=== PATIENT | female | born 1985 | race Caucasian/White ===

== ENCOUNTER 2018-03-12 20:22 | Emergency (ER) | payer BC ==
[~2018-03-12] VITALS: Ht 149.9 cm; Wt 98.4 kg
[2018-03-12 20:37] VITALS: BP 114/77
[2018-03-12] MEDS ORDERED: HYDR-963 PO (20:52)
[2018-03-12] MEDS ORDERED: PENI500T PO (20:52)
--- NOTE | 2018-03-12 20:58 | ED.ADGEN ---
Past History Past Medical History: Gallstones, MRSA Past Surgical History: Cholecystectomy Alcohol Use: Occasionally Drug Use: None Adult General Chief Complaint Chief Complaint dental pain HPI HPI Patient is a 33-year-old female who had been root canal of her left upper premolar earlier this week who presents with left upper maxillary pain radiating to left cheek and left ear. Symptom onset was earlier this afternoon. Patient initially reports relatively mild pain following her root canal until this afternoon. No other acute symptoms or complaints. Patient has not contacted the dentist to perform the procedure. . [] Review of Systems Review of Systems Review symptoms as per history of present illness. All other review symptoms are negative All other systems were reviewed and found to be within normal limits, except as documented in this note. Allergies Allergies Allergies Coded Allergies Type Severity Reaction Last Updated Verified NSAIDS (Non-Steroidal Anti-Inflamma Adverse Reaction Intermediate Nausea and Vomiting 04/01/14 Yes Physical Exam Physical Exam Constitutional: Well developed, well nourished, no acute distress, non-toxic appearance. [] HENT: Normocephalic, atraumatic, bilateral external ears normal, TM, clear fluid and both TMs, no blisters, air-fluid levels, oropharynx moist, no gingival swelling, dental pain, tenderness.[] Back: No tenderness, no CVA tenderness. [] Extremities: No tenderness. [] Neurologic: Alert and oriented X 3, normal motor function, normal sensory function, no focal deficits noted. [] Psychologic: Affect normal, judgement normal, mood normal. [] Current Patient Data Vital Signs Vital Signs Date Time Temp Pulse Resp B/P (MAP) Pulse Ox O2 Delivery O2 Flow Rate FiO2 03/12/18 20:37 97.5 97 18 97 Room Air EKG EKG [] Radiology/Procedures Radiology/Procedures [:] Course & Med Decision Making Course & Med Decision Making Pertinent Labs and Imaging studies reviewed. (See chart for details) [Patient instructed to take antibiotics and pain medication contact dentist/ student assistant on Thursday for further evaluation and treatment.] Final Impression Final Impression [#1 dental pain] Dragon Disclaimer Dragon Disclaimer This electronic medical record was generated, in whole or in part, using a voice recognition dictation system. RICH MENDEZ DO Mar 12, 2018 20:58
== END 2018-03-12 21:03 | disposition home or self-care (01) ==
LOC: ER 20:22
DX: K08.89 Other specified disorders of teeth and supporting structures (principal); G89.18 Other acute postprocedural pain; Z86.14 Personal history of Methicillin resistant Staphylococcus aureus infection; Z88.6 Allergy status to analgesic agent
CPT/HCPCS: 99283

== ENCOUNTER 2018-11-05 19:47 | Emergency (ER) | payer BC ==
[~2018-11-05] VITALS: Ht 149.9 cm; Wt 98.3 kg
[~2018-11-05 19:47] MED LIST: HYDR-3136 PO; PENI500T PO
[2018-11-05 20:04] VITALS: BP 141/77
[2018-11-05] MEDS ORDERED: AZIT250T PO (20:18)
[2018-11-05] MEDS ORDERED: GUAI118L20 PO (20:18)
--- NOTE | 2018-11-05 20:18 | PHYS DOC ---
Past History Past Medical History: Gallstones, MRSA Past Surgical History: Cholecystectomy Alcohol Use: Occasionally Drug Use: None Adult General Chief Complaint Chief Complaint: COUGH HPI HPI Patient is a 33-year-old female who presents with complaint of productive cough and congestion for the last several days. Patient states that symptoms are getting worse and she is not able to sleep at night due to the coughing. She also indicates that she has a lot of postnasal drip. She denies any chest pain or shortness of breath. She also denies any fever. Patient states that her symptoms are worsened when she lies down flat.[] Review of Systems Review of Systems Constitutional: Denies fever or chills [] HENT: Positive nasal congestion[] Respiratory: Positive cough without shortness of breath [] Cardiovascular: No additional information not addressed in HPI [] Allergies Allergies Allergies Coded Allergies Type Severity Reaction Last Updated Verified NSAIDS (Non-Steroidal Anti-Inflamma Adverse Reaction Intermediate Nausea and Vomiting 04/01/14 Yes Physical Exam Physical Exam Constitutional: Well developed, well nourished, no acute distress, non-toxic appearance. [] Cardiovascular:Heart rate regular rhythm, no murmur [] Lungs & Thorax: Fine upper or rhonchi are noted bilaterally to auscultation [ Abdomen: Bowel sounds normal, soft, no tenderness, no masses, no pulsatile masses. [] Skin: Warm, dry, no erythema, no rash. [] Neurologic: Alert and oriented X 3, no focal deficits noted. [] Current Patient Data Vital Signs Vital Signs Date Time Temp Pulse Resp B/P (MAP) Pulse Ox O2 Delivery O2 Flow Rate FiO2 11/05/18 20:04 98.2 98 18 98 Room Air EKG EKG [] Radiology/Procedures Radiology/Procedures [] Course & Med Decision Making Course & Med Decision Making Pertinent Labs and Imaging studies reviewed. (See chart for details) [] Dragon Disclaimer Dragon Disclaimer This electronic medical record was generated, in whole or in part, using a voice recognition dictation system. Departure Departure: Impression: Primary Impression: Acute bronchitis Disposition: 01 HOME, SELF-CARE Condition: STABLE Referrals: PCP,NO (PCP) Patient Instructions: Acute Bronchitis Scripts Guaifenesin/Codeine Phosphate (CHERATUSSIN AC SYRUP) 118 Ml Liquid 5 ML PO PRN Q6HRS PRN for COUGH, #120 ML Prov: LYLE ORTEGA Jr. DO 11/05/18 Azithromycin (ZITHROMAX) 250 Mg Tablet 1 PKG PO UD for infection, #6 TAB Prov: LYLE ORTEGA Jr. DO 11/05/18 Problem Qualifiers Primary Impression: Acute bronchitis Bronchitis organism: unspecified organism Qualified Codes: J20.9 - Acute bronchitis, unspecified LYLE ORTEGA Jr. DO Nov 05, 2018 20:18
== END 2018-11-05 20:38 | disposition home or self-care (01) ==
LOC: ER 19:47
DX: J20.9 Acute bronchitis, unspecified (principal); Z86.14 Personal history of Methicillin resistant Staphylococcus aureus infection; Z88.6 Allergy status to analgesic agent
CPT/HCPCS: 99283

== ENCOUNTER 2019-06-21 18:33 | Emergency (ER) | payer BC, OTHER ==
[~2019-06-21] VITALS: Ht 149.9 cm; Wt 101.2 kg
[~2019-06-21 18:33] MED LIST changes: +AZIT250T PO; +GUAI118L20 PO
--- NOTE | 2019-06-21 18:38 | PHYS DOC ---
Past History Past Medical History: Gallstones, MRSA Past Surgical History: Cholecystectomy Smoking: Cigarettes Alcohol Use: Occasionally Drug Use: None Adult General Chief Complaint Chief Complaint: COUGH..." ... I having coughing all the time, fever, chills, Hurt.. All over, Just Feel Yucky....".. " Every one has been sick at the [employer] where I work..." HPI HPI Patient is a 34 year old female who presents with above hx and complaints of cough, fever, congestion, sore throat, myalgia and malaise. Pt. is also 16 weeks with her sixth child . Pt. is on vitamins. Patient does smoke. Patient did not get flu vaccination this season. Normally follows her primary care at the clinic at [facility]. No recent travel. No history immunosuppression. No specific ill contacts. Patient is following at [facility] for . Review of Systems Review of Systems Constitutional: Hx. of fever Eyes: Denies change in visual acuity, redness, or eye pain [] HENT: Hx of nasal congestion and sore throat [] Respiratory: Complaints of cough and wheezing. Cardiovascular: No additional information not addressed in HPI [] GI: Denies abdominal pain, nausea, vomiting, bloody stools or diarrhea [] : Denies dysuria or hematuria [] Musculoskeletal: Complaints of generalize muscle, back pain and joint pain [] Integument: Denies rash or skin lesions [] Neurologic: Denies headache, focal weakness or sensory changes [] Endocrine: Denies polyuria or polydipsia [] All other systems were reviewed and found to be within normal limits, except as documented in this note. Family History Family History Noncontributory Current Medications Current Medications He nursing for home meds Allergies Allergies Allergies Coded Allergies Type Severity Reaction Last Updated Verified NSAIDS (Non-Steroidal Anti-Inflamma Adverse Reaction Intermediate Nausea and Vomiting 04/01/14 Yes Physical Exam Physical Exam Constitutional: Moderate acute distress, non-toxic appearance. [] HENT: Normocephalic, atraumatic, bilateral external ears normal, oropharynx moist, injected pharynx,, no oral exudates, nose swollen turbinates and clear rhinorrhea Eyes: PERRLA, EOMI, conjunctiva normal, no discharge. [] Neck: Normal range of motion, no tenderness, supple, no stridor. [] Cardiovascular:Heart rate regular rhythm, no murmur [] Lungs & Thorax: Bilateral breath sounds good apex with scattered wheezes on auscultation [] Abdomen: Bowel sounds normal, soft, no tenderness, no masses, no pulsatile masses. Gravid Skin: Warm, dry, no erythema, no rash. [] Back: No tenderness, no CVA tenderness. [] Extremities: generalized joint and muscle tenderness, no cyanosis, no clubbing, ROM intact, trace edema. [] Neurologic: Alert and oriented X 3, normal motor function, normal sensory function, no focal deficits noted. []DTRs +2 patella Psychologic: Affect anxious, judgement normal, mood normal. [] EKG EKG [] Radiology/Procedures Radiology/Procedures [] Course & Med Decision Making Course & Med Decision Making Pertinent Labs and Imaging studies reviewed. (See chart for details) Push fluids. Gargle with Listerine 4 times a day. May take Tylenol for discomfort. Use MDI 2 puffs 4 times a day. Recommend patient stop smoking. May take Benadryl 25-50 mg 4 times a day for congestion and cough.Consider getting flu vaccination when over this acute episode of Influ. A. []Impression: 1. Viral Syndrome- Influ. A 2. Tobacco Use 3. Gravid 16 weeks- (Term x 5) Planned delivery Research. Dragon Disclaimer Dragon Disclaimer This electronic medical record was generated, in whole or in part, using a voice recognition dictation system. Departure Departure: Disposition: 01 HOME/RESIDENCE PRIOR TO ADM Condition: STABLE Referrals: PCP,NO (PCP) Dragon Disclaimer This chart was dictated in whole or in part using Voice Recognition software in a busy, high-work load, and often noisy Emergency Department environment. It may contain unintended and wholly unrecognized errors or omissions. Dragon Disclaimer This chart was dictated in whole or in part using Voice Recognition software in a busy, high-work load, and often noisy Emergency Department environment. It may contain unintended and wholly unrecognized errors or omissions. ELICIA PHILLIP MD Jun 21, 2019 18:38
[2019-06-21] MEDS ORDERED: ALBUTEROL SULFATE 8GM INHALER. INH ONE (18:45)
[2019-06-21] MEDS ORDERED: predniSONE 10 MG TABLET PO ONE (18:45)
[2019-06-21 18:48] VITALS: BP 123/79
[2019-06-21 19:20] LABS: BARBITURATES NEG (NEG); BENZODIAZEPINES NEG (NEG); CANNABINOIDS NEG (NEG); COCAINE NEG (NEG); METHADONE NEG (NEG); OPIATES NEG (NEG); PHENCYCLIDINE NEG (NEG)
[2019-06-21 19:22] LABS: BILIRUBIN,URINE NEG (NEG); CLARITY,URINE CLEAR; COLOR,URINE STRAW; GLUCOSE,URINE NEG (NEG)
[2019-06-21 19:23] LABS: BACTERIA,URINE FEW /HPF (0-FEW); NITRITE,URINE NEG (NEG); SQUAMOUS EPITHELIAL CELL,UR FEW /LPF; UROBILINOGEN,URINE 0.2 mg/dL (0.2 mg/dL); WBC,URINE OCC /HPF (0-4)
[2019-06-21 19:24] LABS: AMORPHOUS SEDIMENT,UR PRESENT /HPF
[2019-06-21 19:25] LABS: U PREG PATIENT POSITIVE (NEG)
[2019-06-21 19:26] LABS: AMPHETAMINE/METHAMPHETAMINE NEG (NEG)
[2019-06-21 19:34] LABS: INFLUENZA A PATIENT POSITIVE (NEGATIVE)
[2019-06-21 19:35] LABS: INFLUENZA B PATIENT NEGATIVE (NEGATIVE)
== END 2019-06-21 19:46 | disposition home or self-care (01) ==
LOC: ER 18:33
DX: O98.512 Other viral diseases complicating pregnancy, second trimester (principal); F17.210 Nicotine dependence, cigarettes, uncomplicated; Z87.442 Personal history of urinary calculi; Z86.14 Personal history of Methicillin resistant Staphylococcus aureus infection; Z90.49 Acquired absence of other specified parts of digestive tract; Z88.6 Allergy status to analgesic agent; Z3A.16 16 weeks gestation of pregnancy
CPT/HCPCS: 36415; 80307; 81001; 81025; 87070; 87804; 87880; 94640; 99284; J7512; J7613; 94664

== ENCOUNTER 2019-08-10 09:41 | Emergency (ER) | payer OTHER ==
[~2019-08-10] VITALS: Ht 149.9 cm; Wt 98.3 kg
[2019-08-10 10:20] VITALS: BP 147/91
--- NOTE | 2019-08-10 10:20 | PHYS DOC ---
Past History Additional Past Medical Histor: mrsa Past Surgical History: Cholecystectomy Smoking: Cigarettes Alcohol Use: None Drug Use: None Adult General Chief Complaint Chief Complaint: CHEST PAIN HPI HPI 34-year-old female who is approximately 32 weeks gestation as a Ab0 presents with report of right anterior chest wall pain which is been ongoing since this morning. Patient denies any trauma. Denies leg swelling or calf tend erness. Denies shortness of air or pleuritic pain. Patient describes the pain as sharp in nature which is worse with palpation. Patient also very tearful and reports she does not "know why" she keeps crying. Reports she feels the child moving. Denies any vaginal bleeding or discharge. Review of Systems Review of Systems Constitutional: Denies fever or chills Eyes: Denies redness or eye pain HENT: Denies nasal congestion or sore throat Respiratory: Denies cough or shortness of breath Cardiovascular: Reports chest pain; denies palpitations GI: Denies abdominal pain, nausea, or vomiting : Denies dysuria or hematuria Musculoskeletal: Denies back pain or joint pain Integument: Denies rash or skin lesions Neurologic: Denies headache, focal weakness or sensory changes Complete systems were reviewed and found to be within normal limits, except as documented in this note. Allergies Allergies Allergies Coded Allergies Type Severity Reaction Last Updated Verified NSAIDS (Non-Steroidal Anti-Inflamma Adverse Reaction Intermediate Nausea and Vomiting 04/01/14 Yes Physical Exam Physical Exam Constitutional: Well developed, well nourished, tearful, non-toxic appearance HENT: Normocephalic, atraumatic, oropharynx moist Eyes: Conjunctiva normal, no discharge Neck: Normal range of motion, no tenderness, supple Cardiovascular: Heart rate normal, regular rhythm Lungs & Thorax: Bilateral breath sounds clear to auscultation, no wheezing, pal pation of right anterior chest wall reproducible. Abdomen: Soft, no tenderness, gravid Skin: Warm, dry, no erythema, no rash Back: No tenderness, no CVA tenderness Extremities: No tenderness, ROM intact, no edema Neurologic: Alert and oriented X 3, no focal deficits noted Psychologic: Affect anxious and crying, judgment normal EKG EKG @0949 Sinus tachycardia at 111bpm, NO ST elevation, QRS 76ms, QT/QTc 320/438ms Radiology/Procedures Radiology/Procedures [] Course & Med Decision Making Course & Med Decision Making Patient presents with atypical chest pain to right anterior wall. Patient is . No calf tenderness or edema noted. Patient very tearful. Lungs clear to auscultation. Patient's oxygenation normal. Denies pleuritic pain. Denies history of DVT or PE. Patient offered laboratory and ultrasound evaluation of bilateral lower extremities to ensure no DVT however less likely on physical exam. Patient elected for supportive care including Tylenol and ice pack and will return for any worsening of condition. heart tones normal. Patient stable for discharge with outpatient follow-up with PCP/OB. Discussed findings and plan with patient, who acknowledges understanding and agreement. Dragon Disclaimer Dragon Disclaimer This electronic medical record was generated, in whole or in part, using a voice recognition dictation system. Departure Departure: Impression: Primary Impression: Atypical chest pain Additional Impression: Disposition: HOME, SELF-CARE Condition: STABLE Referrals: PCP,NO (PCP) Patient Instructions: ABCs of , Chest Pain (Nonspecific), [id number], Chest Wall Pain, [id number] Additional Instructions: ICE area 20 min on then leave off 20 mins as needed for next few days. Take Tylenol as needed for pain or discomfort. HEART Score for Chest Pain PTs The HEART Score for CP Pts HEART Score for Chest Pain: HEART Score for Chest Pain Response (Comments) Value History Slighlty/Non-Suspicious 0 ECG Normal 0 Age < 45 0 Risk Factors 1 or 2 Risk Factors 1 Total 1 Risk Factors: Risk Factors: DM, Current or recent (<one month) smoker, HTN, HLP, family history of CAD, obesity. Risk Scores: Score 0 - 3: 2.5% MACE over next 6 weeks - Discharge Home Score 4 - 6: 20.3% MACE over next 6 weeks - Admit for Clinical Observation Score 7 - 10: 72.7% MACE over next 6 weeks - Early Invasive Strategies Problem Qualifiers Additional Impression: Weeks of gestation: 32 weeks Qualified Codes: Z3A.32 - 32 weeks gestation of JASON CARROLL DO Aug 10, 2019 10:20
[2019-08-10] MEDS ORDERED: ACETAMINOPHEN 500 MG TABLET PO ONE (10:30)
--- NOTE | 2019-08-10 17:54 | EKG ---
[address] [address] Test Date: 2019-08-10 Test Time: 09:49:42 Pat Name: THERESA BROCK Department: Room: Gender: F [employer]: : 1985 Requested By: JASON CARROLL Order Number: [id number] Reading MD: Measurements Intervals [place] Rate: 111 P: 16 AR: 132 QRS: 24 QRSD: 76 T: 42 QT: 320 QTc: 438 Interpretive Statements SINUS TACHYCARDIA NO SPECIFIC ECG ABNORMALITIES RI6.01 No previous ECG available for comparison
== END 2019-08-10 10:35 | disposition home or self-care (01) ==
LOC: ER 09:41
DX: O26.893 Other specified pregnancy related conditions, third trimester (principal); R07.89 Other chest pain; O99.333 Smoking (tobacco) complicating pregnancy, third trimester; Z3A.32 32 weeks gestation of pregnancy; Z88.6 Allergy status to analgesic agent
CPT/HCPCS: 93005; 99283

== ENCOUNTER 2019-08-16 16:51 | Emergency (ER) | payer OTHER ==
[~2019-08-16] VITALS: Ht 149.9 cm; Wt 106.7 kg
[2019-08-16] MEDS ORDERED: IV NORMAL SALINE 1,000ML 1,000 ML IV SCH (17:23)
[2019-08-16] MEDS ORDERED: ONDANSETRON PF 4 MG/2 ML VIAL. IVP ONE ×2 (17:30→19:15)
--- NOTE | 2019-08-16 17:30 | PHYS DOC ---
Past History Additional Past Medical Histor: mrsa (LYLE ORTEGA Jr., DO) Past Surgical History: Cholecystectomy (LYLE ORTEGA Jr., DO) Smoking: Cigarettes Alcohol Use: None Drug Use: None (LYLE ORTEGA Jr., DO) Adult General Chief Complaint Chief Complaint: ABDOMINAL PAIN IN HPI HPI Patient is a 34-year-old female who presents with complaint of lower back pain for about the last week and today feeling like she was having contractions while she was at work. Patient is a at approximately 24 weeks' gestational age. She states that she has been having nausea for quite some time now and does admit that she may not be drinking enough fluids. She also indicates that she is under a lot of stress. Patient states that since lying down here in the emergency room the back pain has improved. She states that the contractions are probably Riley Bergman state that they were intermittent while at work today. Patient denies any fever.[] (LYLE ORTEGA Jr., DO) Review of Systems Review of Systems Constitutional: Denies fever or chills [] Respiratory: Denies cough or shortness of breath [] Cardiovascular: No additional information not addressed in HPI [] GI: Admits to abdominal cramps/Riley Bergman with nausea. Denies vomiting or diarrhea [] : Denies dysuria or hematuria [] Musculoskeletal: Complains of lower back pain [] Integument: Denies rash or skin lesions [] All other systems were reviewed and found to be within normal limits, except as documented in this note. (LYLE ORTEGA Jr., DO) Current Medications Current Medications Current Medications Medications (Trade) Dose Ordered Sig/Tiffanie Start Time Stop Time Status Last Admin Dose Admin Ondansetron HCl (Zofran) 4 mg 1X ONCE 08/16/19 17:30 08/16/19 17:31 UNV Sodium Chloride 1,000 ml @ 1,000 mls/hr Q1H 08/16/19 17:23 08/16/19 18:22 UNV (LYLE ORTEGA Jr., DO) Allergies Allergies Allergies Coded Allergies Type Severity Reaction Last Updated Verified NSAIDS (Non-Steroidal Anti-Inflamma Adverse Reaction Intermediate Nausea and Vomiting 04/01/14 Yes (LYLE ORTEGA Jr., DO) Physical Exam Physical Exam Constitutional: Well developed, well nourished, no acute distress, non-toxic appearance. [] HENT: Normocephalic, atraumatic, bilateral external ears normal, oropharynx dry, no oral exudates, nose normal. [] Eyes: PERRLA, EOMI, conjunctiva normal, no discharge. [] Neck: Normal range of motion, no tenderness, supple. [] Cardiovascular: Regular rate and rhythm[] Lungs & Thorax: Bilateral breath sounds clear to auscultation [] Abdomen: Bowel sounds normal, gravid with no significant tenderness. [] Skin: Warm, dry, no erythema, no rash. [] Extremities: No tenderness, no cyanosis, no clubbing, ROM intact. [] Neurologic: Alert and oriented X 3n, no focal deficits noted. [] (LYLE ORTEGA Jr., DO) EKG EKG [] (LYLE ORTEGA Jr., DO) Radiology/Procedures Radiology/Procedures [] (LYLE ORTEGA Jr., DO) Course & Med Decision Making Course & Med Decision Making Pertinent Labs and Imaging studies reviewed. (See chart for details) [] (LYLE ORTEGA Jr., DO) Course & Med Decision Making Pt. report improvement at 1900 hrs. Still mild nausea and Lt. lower flank pain. Pt. has apt. Thursday with Ob at Dr. Rodger Juarez. US prior reportedly showed no abnormalities. Pt. push fluids. Tylenol for pain. Marked pain take Percocet. Review labs with OB. Call for apt. sooner and return if any concerns. No vaginal discharge, DTR +2, no ankle edema. BP 117/73. Impression: Impression: 1. Gravid 6P5- currently at 24 weeks via US with Ob 2. Nausea 3. Lt. Sciatic Back pain 4. Mild dehydration 5. [facility] [place] (ELICIA PHILLIP MD) Dragon Disclaimer Dragon Disclaimer This electronic medical record was generated, in whole or in part, using a voice recognition dictation system. (LYLE ORTEGA Jr., DO) Departure Departure: Disposition: HOME/RESIDENCE PRIOR TO ADM Condition: STABLE Referrals: PCP,NO (PCP) Scripts Oxycodone HCl/Acetaminophen (Percocet 5-325 mg Tablet) 1 Each Tablet 1 TAB PO PRN QID PRN for PAIN MDD 4 Tablet(s) for 30 Days, #30 TAB 0 Refills Prov: ELICIA PHILLIP MD 08/16/19 Ondansetron Hcl (ZOFRAN) 8 Mg Tablet 8 MG PO QIDPRN PRN for for active vomiting, #30 BOTTLE Prov: ELICIA PHILLIP MD 08/16/19 Mai Disclaimer This chart was dictated in whole or in part using Voice Recognition software in a busy, high-work load, and often noisy Emergency Department environment. It may contain unintended and wholly unrecognized errors or omissions. (ELICIA PHILLIP MD) LYLE ORTEGA Jr. DO Aug 16, 2019 17:30 ELICIA PHILLIP MD Aug 16, 2019 19:12
[2019-08-16 17:54] LABS: BASO % 0 % (0-3); EOS # 0.1 x10^3/uL (0.0-0.7); EOS % 1 % (0-3); HEMATOCRIT 36.7 % (36.0-47.0); HEMOGLOBIN 12.3 g/dL (12.0-15.5); LYMPH # 1.7 x10^3/uL (1.0-4.8); LYMPH % 17 % (24-48); MEAN CORPUSCULAR HEMOGLOBIN 33 pg (25-35); MEAN CORPUSCULAR HGB CONC 34 g/dL (31-37); MEAN CORPUSCULAR VOLUME 98 fL (79-100); MONO # 0.7 x10^3/uL (0.0-1.1); MONO % 7 % (0-9); NEUT # 7.2 x10^3uL (1.8-7.7); NEUT % 74 % (31-73); PLATELET COUNT 158 x10^3/uL (140-400); RED BLOOD COUNT 3.75 x10^6/uL (3.50-5.40); RED CELL DISTRIBUTION WIDTH 13.7 % (11.5-14.5); WHITE BLOOD COUNT 9.7 x10^3/uL (4.0-11.0)
[2019-08-16 17:57] LABS: CALCIUM 8.8 mg/dL (8.5-10.1); CREATININE 0.6 mg/dL (0.6-1.0); GFR 113.8; POTASSIUM 3.7 mmol/L (3.5-5.1)
[2019-08-16 17:59] LABS: BILIRUBIN,URINE NEG (NEG); CLARITY,URINE HAZY; COLOR,URINE AMBER; GLUCOSE,URINE NEG (NEG)
[2019-08-16 18:00] LABS: BACTERIA,URINE 0 /HPF (0-FEW); NITRITE,URINE NEG (NEG); SQUAMOUS EPITHELIAL CELL,UR OCC /LPF; UROBILINOGEN,URINE 0.2 mg/dL (0.2 mg/dL)
[2019-08-16] MEDS ORDERED: ACETAMINOPHEN 500 MG TABLET PO ONE (18:00)
[2019-08-16 18:03] LABS: ALBUMIN 2.7 g/dL (3.4-5.0); ALBUMIN/GLOBULIN RATIO 0.7 (1.0-1.7); TOTAL BILIRUBIN 0.4 mg/dL (0.2-1.0); TOTAL PROTEIN 6.5 g/dL (6.4-8.2)
[2019-08-16] MEDS ORDERED: ONDA8TAB9 PO (19:18)
[2019-08-16] MEDS ORDERED: OXYC-325 PO (19:18)
[2019-08-16 19:43] VITALS: BP 127/86
== END 2019-08-16 19:52 | disposition home or self-care (01) ==
LOC: ER 16:51
DX: O26.892 Other specified pregnancy related conditions, second trimester (principal); M54.40 Lumbago with sciatica, unspecified side; R10.9 Unspecified abdominal pain; O99.282 Endocrine, nutritional and metabolic diseases complicating pregnancy, second trimester; E86.0 Dehydration; O99.332 Smoking (tobacco) complicating pregnancy, second trimester; Z3A.24 24 weeks gestation of pregnancy
CPT/HCPCS: 36415; 80053; 81001; 83690; 84702; 85025; 87086; 96361; 96374; 96375; 99284; J2405; J7030

== ENCOUNTER 2020-01-13 16:15 | Emergency (ER) | payer OTHER ==
[~2020-01-13] VITALS: Ht 149.9 cm; Wt 99.5 kg
[~2020-01-13 16:15] MED LIST changes: +ONDA8TAB9 PO; +OXYC-325 PO
[2020-01-13 16:24] VITALS: BP 155/97
[2020-01-13] MEDS ORDERED: CLOT15CR23 TP (16:54)
--- NOTE | 2020-01-13 16:55 | PHYS DOC ---
Past History Past Medical History: No Pertinent History Additional Past Medical Histor: mrsa Past Surgical History: Cholecystectomy, Smoking: Cigarettes Alcohol Use: None Drug Use: None General Adult EDM: Chief Complaint: WOUND CHECK HPI: HPI: 34-year-old female pmh obesity presents to the ED sent in by her [employer] doctor with concern for a wound check of her scar. Patient states she had a by Dr. Gail Soares at [facility] on December 13. Boyfriend told patient she had pus coming out of her wound. Patient reports she has difficulty keeping the skin clean and dry, reports an odor from the wound. No pmh diabetes. Is bottle feeding. ROS: Denies associated fever, chills, cough, sore throat, nausea, vomiting, diarrhea, abdominal pain, abnormal vaginal bleeding or discharge, back pain, dysuria, hematuria, flank pain, leg swelling, hemoptysis or diaphoresis. Review of Systems: Review of Systems: Constitutional: Denies fever or chills Eyes: Denies change in visual acuity HENT: Denies nasal congestion or sore throat Respiratory: Denies cough or shortness of breath Cardiovascular: Denies chest pain or edema GI: Denies abdominal pain, nausea, vomiting, bloody stools or diarrhea : Denies dysuria Musculoskeletal: Denies back pain or joint pain Integument: Denies rash Neurologic: Denies headache, focal weakness or sensory changes Endocrine: Denies polyuria or polydipsia Lymphatic: Denies swollen glands Psychiatric: Denies depression or anxiety Heart Score: Risk Factors: Risk Factors: DM, Current or recent (<one month) smoker, HTN, HLP, family history of CAD, obesity. Risk Scores: Score 0 - 3: 2.5% MACE over next 6 weeks - Discharge Home Score 4 - 6: 20.3% MACE over next 6 weeks - Admit for Clinical Observation Score 7 - 10: 72.7% MACE over next 6 weeks - Early Invasive Strategies Allergies: Allergies: Allergies Coded Allergies Type Severity Reaction Last Updated Verified NKMA Allergy Unknown 08/16/19 Yes NSAIDS (Non-Steroidal Anti-Inflamma Adverse Reaction Intermediate Nausea and Vomiting 04/01/14 Yes Physical Exam: PE: Constitutional: Well developed, well nourished, no acute distress, non-toxic appearance. [] HENT: Normocephalic, atraumatic, bilateral external ears normal, oropharynx moist, no oral exudates, nose normal. [] Eyes: PERRLA, EOMI, conjunctiva normal, no discharge. [] Neck: Normal range of motion, no tenderness, supple, no stridor. [] Cardiovascular:Heart rate regular rhythm, no murmur [] Lungs & Thorax: Bilateral breath sounds clear to auscultation [] Abdomen: Bowel sounds normal, soft, no tenderness, no masses, no pulsatile masses. [] Skin: Warm, dry, no erythema, no rash. [] Back: No tenderness, no CVA tenderness. [] Extremities: No tenderness, no cyanosis, no clubbing, ROM intact, no edema. [] Neurologic: Alert and oriented X 3, normal motor function, normal sensory func tion, no focal deficits noted. [] Psychologic: Affect normal, judgement normal, mood normal. [] Current Patient Data: Vital Signs: Vital Signs Date Time Temp Pulse Resp B/P (MAP) Pulse Ox O2 Delivery O2 Flow Rate FiO2 01/13/20 16:24 98.4 105 14 155/97 (116) 95 Room Air EKG: EKG: [] Radiology/Procedures: Radiology/Procedures: [] Course & Med Decision Making: Course & Med Decision Making Pertinent Labs and Imaging studies reviewed. (See chart for details) [] Dragon Disclaimer: Dragon Disclaimer: This electronic medical record was generated, in whole or in part, using a voice recognition dictation system. Departure Departure: Impression: Primary Impression: Encounter for postoperative wound check Additional Impression: Candidal dermatitis Disposition: HOME/RESIDENCE PRIOR TO ADM Condition: STABLE Referrals: KAYDEN SOARES MD (PCP) Patient Instructions: Yeast Infection of the Skin, [id number] Scripts Clotrimazole (CLOTRIMAZOLE) 15 Gm Cream..g. 1 JOSE FRANCISCO TP BID PRN for RASH, #30 GM until rash disappears/resolves Prov: FLORIAN VALERA DO 01/13/20 Justification of Admission: Justification of Admission: Justification of Admission Dx: N/A FLORIAN VALERA DO Jan 13, 2020 16:54
== END 2020-01-13 17:10 | disposition home or self-care (01) ==
LOC: ER 16:15
DX: O86.00 Infection of obstetric surgical wound, unspecified (principal); L25.9 Unspecified contact dermatitis, unspecified cause; F17.210 Nicotine dependence, cigarettes, uncomplicated; Z98.890 Other specified postprocedural states; Z90.49 Acquired absence of other specified parts of digestive tract
CPT/HCPCS: 99282

== ENCOUNTER 2020-03-07 09:09 | Emergency (ER) | payer OTHER ==
[~2020-03-07] VITALS: Ht 149.9 cm; Wt 100.0 kg
[~2020-03-07 09:09] MED LIST changes: +CLOT15CR23 TP
[2020-03-07] MEDS ORDERED: IV NORMAL SALINE 1,000ML 1,000 ML IV ONE (09:30)
[2020-03-07] MEDS ORDERED: METOCLOPRAMIDE HCL 10 MG/2 ML VIAL. IVP ONE (09:30)
--- NOTE | 2020-03-07 09:39 | PHYS DOC ---
Past History Past Medical History: No Pertinent History Additional Past Medical Histor: mrsa Past Surgical History: Cholecystectomy, Smoking: Cigarettes Alcohol Use: None Drug Use: None General Adult EDM: Chief Complaint: FLANK PAIN HPI: HPI: Patient is a 35 year old F who presents with left flank pain that began this morning. She states the pain has been constant since it started, and she states she cannot become comfortable or make the pain improve. She denies radiation of the pain, rates it 10/10 on the pain scale, and when asked to describe the pain she states it is "just horrible". She complains of associated nausea and diaphoresis, but denies vomiting. She denies dysuria and frequency, but reports that her urine is a darker reddish color. She denies taking any medication today to try to improve the pain. Review of Systems: Review of Systems: Constitutional: Denies fever or chills Eyes: Denies redness or eye pain HENT: Denies nasal congestion or sore throat Respiratory: Denies cough or shortness of breath Cardiovascular: Denies chest pain or palpitations GI: Denies abdominal pain and vomiting; reports nausea : Denies dysuria; reports hematuria Musculoskeletal: Denies joint and back pain Integument: Denies rash or skin lesions Neurologic: Denies headache or sensory changes Complete systems were reviewed and found to be within normal limits, except as documented in this note. Allergies: Allergies: Allergies Coded Allergies Type Severity Reaction Last Updated Verified NKMA Allergy Unknown 08/16/19 Yes NSAIDS (Non-Steroidal Anti-Inflamma Adverse Reaction Intermediate Nausea and Vomiting 03/07/20 Yes Physical Exam: PE: Constitutional: Standing in room and pacing, appears that she cannot get comfortable. Well developed, well nourished. HENT: Normocephalic, atraumatic Eyes:Conjunctiva normal, no discharge Neck: Normal range of motion, supple Lungs & Thorax: No respiratory distress, equal chest rise and fall Abdomen: Soft, mildly tender to palpation in left lower quadrant Skin: Warm, dry, no rash Back: CVA tenderness on left side. Extremities: No tenderness, no edema Neurologic: Alert and oriented X 3, no focal deficits noted Psychologic: Affect normal, judgment normal Current Patient Data: Vital Signs: Vital Signs Date Time Temp Pulse Resp B/P (MAP) Pulse Ox O2 Delivery O2 Flow Rate FiO2 03/07/20 09:16 98.6 60 18 131/99 (110) 99 EKG: EKG: [] Radiology/Procedures: Radiology/Procedures: PROCEDURE: CT ABDOMEN PELVIS WO CONTRAST CT ABDOMEN PELVIS WO CONTRAST History: Reason: left flank pain eval for ureteral calculi / Spl. Instructions: / History: Technique: Noncontrast examination of the abdomen and pelvis. Coronal and sagittal reconstructions were performed. Exposure: One or more of the following individualized dose reduction techniques were utilized for this examination: 1. Automated exposure control 2. Adjustment of the mA and/or kV according to patient size 3. Use of iterative reconstruction technique. Comparison: None Findings: Lower chest: Bilateral lower lobe groundglass opacities. No pleural effusion. No consolidation. Abdomen and pelvis: Tiny right inferior hepatic hypodensity measures 5 mm. The spleen, adrenal glands, and pancreas unremarkable. Prior cholecystectomy. Mild left hydronephrosis. 4 mm left proximal ureteral calculus (series 2 image 70). Mild left perinephric and proximal ureteral fat stranding. Decompressed urinary bladder. No right hydronephrosis. Crescentic cystic lesion in the region of the urethra (series 2 image 143) measures 2.5 x 1.5 cm. Uterus and ovaries are unremarkable. Normal pelvic No evidence of bowel obstruction. No pathologic lymphadenopathy. No ascites. Periumbilical fat-containing hernia measures 3.7 x 2.9 cm. Fascial defect measures 0.8 cm. Bones: No pathologic osseous lesions. Impression: 1. 4 mm obstructing left proximal ureteral calculus contributing to mild left hydronephrosis and perinephric stranding. 2. Crescentic cystic lesion within the region of the urethra, may represent urethral diverticulum or vaginal cystic lesion. Recommend further clinical evaluation with symptoms. Depending on symptoms recommend imaging follow-up. 3. Tiny right hepatic hypodensity, may represent cyst or hemangioma although too small to further characterize. 4. Prior cholecystectomy. Electronically signed by: Nick Montana DO (03/07/2020 10:05 AM) [id number] Course & Med Decision Making: Course & Med Decision Making Pt is a 35 yo F who presented with left flank pain that began this morning, with associated nausea and hematuria. CT abd/pelvis showed a 4mm stone within the left ureter and mild hydronephrosis of left kidney. Patient's nausea and pain were well controlled in the ED. UA contained both RBC and WBC. Pt was started on antibiotics. Stable upon discharge. Pertinent Labs and Imaging studies reviewed. Dragon Disclaimer: Mai Disclaimer: This electronic medical record was generated, in whole or in part, using a voice recognition dictation system. Departure Departure: Impression: Primary Impression: Kidney stone Additional Impression: Urinary tract infection Qualified Codes: N30.01 - Acute cystitis with hematuria Disposition: HOME/RESIDENCE PRIOR TO ADM Condition: STABLE Referrals: KAYDEN CLARK MD (PCP) Patient Instructions: Diet for Kidney Stones, Incidental Abnormal Radiological Finding, Kidney Stones, [id number], Urinary Tract Infection, [id number] Additional Instructions: Please follow closely with your PCP and/or an Urologist. Please give your CT results to your PCP and/or Urologist for further evaluation regarding abnormal results. Scripts Ondansetron (ONDANSETRON ODT) 4 Mg Tab.rapdis 1 TAB PO PRN Q6-8HRS PRN for NAUSEA, #16 TAB Prov: JASON CARROLL DO 03/07/20 Hydrocodone Bit/Acetaminophen (NORCO 5-325 TABLET) 1 Each Tablet 0.5-1 TAB PO Q6HRS PRN for PAIN, #14 TAB Prov: JASON CARROLL DO 03/07/20 Tamsulosin Hcl (FLOMAX) 0.4 Mg Cap.er.24h 1 CAP PO DAILY for Kidney stone, #10 CAP Prov: JASON CARROLL DO 03/07/20 Cephalexin (KEFLEX) 500 Mg Capsule 1 CAP PO TID for UTI for 7 Days, #21 CAP 0 Refills Prov: JASON CARROLL DO 03/07/20 JASON CARROLL DO Mar 07, 2020 09:39
--- NOTE | 2020-03-07 10:07 | RAD ---
CT ABDOMEN PELVIS WO CONTRAST History: Reason: left flank pain eval for ureteral calculi / Spl. Instructions: / History: Technique: Noncontrast examination of the abdomen and pelvis. Coronal and sagittal reconstructions were performed. Exposure: One or more of the following individualized dose reduction techniques were utilized for this examination: 1. Automated exposure control 2. Adjustment of the mA and/or kV according to patient size 3. Use of iterative reconstruction technique. Comparison: None Findings: Lower chest: Bilateral lower lobe groundglass opacities. No pleural effusion. No consolidation. Abdomen and pelvis: Tiny right inferior hepatic hypodensity measures 5 mm. The spleen, adrenal glands, and pancreas unremarkable. Prior cholecystectomy. Mild left hydronephrosis. 4 mm left proximal ureteral calculus (series 2 image 70). Mild left perinephric and proximal ureteral fat stranding. Decompressed urinary bladder. No right hydronephrosis. Crescentic cystic lesion in the region of the urethra (series 2 image 143) measures 2.5 x 1.5 cm. Uterus and ovaries are unremarkable. Normal pelvic No evidence of bowel obstruction. No pathologic lymphadenopathy. No ascites. Periumbilical fat-containing hernia measures 3.7 x 2.9 cm. Fascial defect measures 0.8 cm. Bones: No pathologic osseous lesions. Impression: 1. 4 mm obstructing left proximal ureteral calculus contributing to mild left hydronephrosis and perinephric stranding. 2. Crescentic cystic lesion within the region of the urethra, may represent urethral diverticulum or vaginal cystic lesion. Recommend further clinical evaluation with symptoms. Depending on symptoms recommend imaging follow-up. 3. Tiny right hepatic hypodensity, may represent cyst or hemangioma although too small to further characterize. 4. Prior cholecystectomy. Electronically signed by: Nick Montana DO (03/07/2020 10:05 AM) [id number]
[2020-03-07 10:14] LABS: BASO % 1 % (0-3); EOS # 0.2 x10^3/uL (0.0-0.7); EOS % 3 % (0-3); HEMATOCRIT 38.6 % (36.0-47.0); HEMOGLOBIN 12.2 g/dL (12.0-15.5); LYMPH # 1.1 x10^3/uL (1.0-4.8); LYMPH % 15 % (24-48); MEAN CORPUSCULAR HEMOGLOBIN 27 pg (25-35); MEAN CORPUSCULAR HGB CONC 32 g/dL (31-37); MEAN CORPUSCULAR VOLUME 85 fL (79-100); MONO # 0.5 x10^3/uL (0.0-1.1); MONO % 6 % (0-9); NEUT # 5.9 x10^3uL (1.8-7.7); NEUT % 76 % (31-73); PLATELET COUNT 219 x10^3/uL (140-400); RED BLOOD COUNT 4.56 x10^6/uL (3.50-5.40); RED CELL DISTRIBUTION WIDTH 17.7 % (11.5-14.5); WHITE BLOOD COUNT 7.7 x10^3/uL (4.0-11.0)
[2020-03-07] MEDS ORDERED: TAMSULOSIN 0.4 MG CAP.ER.24H. PO ONE (10:15)
[2020-03-07 10:17] LABS: CALCIUM 8.6 mg/dL (8.5-10.1); GFR 62.7; POTASSIUM 4.2 mmol/L (3.5-5.1)
[2020-03-07 10:20] LABS: CLARITY,URINE TURBID; COLOR,URINE RED
[2020-03-07 10:21] LABS: BILIRUBIN,URINE NEG (NEG); GLUCOSE,URINE NEG (NEG); NITRITE,URINE NEG (NEG); UROBILINOGEN,URINE 0.2 mg/dL (0.2 mg/dL)
[2020-03-07 10:23] LABS: ALBUMIN 3.1 g/dL (3.4-5.0); ALBUMIN/GLOBULIN RATIO 0.8 (1.0-1.7); TOTAL BILIRUBIN 0.2 mg/dL (0.2-1.0); TOTAL PROTEIN 7.2 g/dL (6.4-8.2)
[2020-03-07 10:41] LABS: BACTERIA,URINE MANY /HPF (0-FEW); RBC,URINE >40 /HPF (0-2); SQUAMOUS EPITHELIAL CELL,UR FEW /LPF; WBC,URINE >40 /HPF (0-4)
[2020-03-07] MEDS ORDERED: IV NORMAL SALINE 50ML 50 ML ONE (10:55)
[2020-03-07] MEDS ORDERED: cefTRIAXone SODIUM 1 GM VIAL ONE (10:56)
[2020-03-07] MEDS ORDERED: ONDA4TAB12 PO (10:56)
[2020-03-07] MEDS ORDERED: HYDR-3165 PO (10:56)
[2020-03-07] MEDS ORDERED: CEPH-264 PO (10:56)
[2020-03-07] MEDS ORDERED: TAMS0.4C97 PO (10:56)
[2020-03-07 11:49] VITALS: BP 116/70
== END 2020-03-07 11:52 | disposition home or self-care (01) ==
LOC: ER 09:09
DX: N13.2 Hydronephrosis with renal and ureteral calculous obstruction (principal); N30.01 Acute cystitis with hematuria; F17.210 Nicotine dependence, cigarettes, uncomplicated; Z90.49 Acquired absence of other specified parts of digestive tract; Z98.890 Other specified postprocedural states; Z88.6 Allergy status to analgesic agent
CPT/HCPCS: 36415; 74176; 80053; 81001; 81025; 83690; 85025; 87086; 96361; 96365; 96375; 99285; J0696; J2765; J3010; J7030

== ENCOUNTER 2020-03-19 21:02 | Emergency (ER) | payer OTHER ==
[~2020-03-19] VITALS: Ht 149.9 cm; Wt 98.0 kg
[~2020-03-19 21:02] MED LIST changes: +CEPH-264 PO; +HYDR-3165 PO; +ONDA4TAB12 PO; +TAMS0.4C97 PO
--- NOTE | 2020-03-19 21:21 | PHYS DOC ---
Past History Past Medical History: Kidney Stones Additional Past Medical Histor: mrsa Past Surgical History: Cholecystectomy, Additional Past Surgical Histo: tubal ligation Smoking: Cigarettes Alcohol Use: None Drug Use: None Adult General Chief Complaint Chief Complaint: GROIN PAIN [facility] HPI Patient is a 35-year-old female who presents with left flank pain. This is similar to pain she sought care for approximately 10 days ago at our facility and was subsequently diagnosed with a obstructing left-sided 4 mm kidney stone. She was discharged at that time with Flomax, pain control, and 7-day course of antibiotics. She completed all of these remedies without significant relief. She complains of continued left flank pain which radiates into her left superior groin. She has been afebrile. She has not been taking anything for the pain, no [id number] medications have been tried. She is here today due to ongoing pain Review of Systems Review of Systems Fourteen body systems of review of systems have been reviewed. See HPI for pertinent positives and negative responses, other lawson all other systems are negative, non-pertinent or non-contributory Allergies Allergies Allergies Coded Allergies Type Severity Reaction Last Updated Verified NKMA Allergy Unknown 08/16/19 Yes NSAIDS (Non-Steroidal Anti-Inflamma Adverse Reaction Intermediate Nausea and Vomiting 03/07/20 Yes Physical Exam Physical Exam Constitutional: Well developed, well nourished, moderate distress from pain, non-toxic appearance. HENT: Normocephalic, atraumatic, bilateral external ears normal, oropharynx moist, no oral exudates, nose normal. Eyes: PERRLA, EOMI, conjunctiva normal, no discharge. Neck: Normal range of motion, no tenderness, supple, no stridor. Cardiovascular: Heart rate regular, sinus rhythm, no murmurs rubs or gallops Lungs & Thorax: Bilateral breath sounds clear to auscultation Abdomen: Bowel sounds normal, protuberant, soft, midline and left suprapubic tenderness, no masses, no pulsatile masses. Nonsurgical abdomen, no peritoneal signs Skin: Warm, dry, no erythema, no rash. Back: No tenderness, left CVA tenderness Extremities: No tenderness, no cyanosis, no clubbing, ROM intact, no edema. Neurologic: Alert and oriented X 3, grossly normal motor & sensory function, no focal deficits noted. Psychologic: Affect normal, judgement normal, anxious mood Current Patient Data Vital Signs Vital Signs Date Time Temp Pulse Resp B/P (MAP) Pulse Ox O2 Delivery O2 Flow Rate FiO2 03/19/20 23:35 18 98 Room Air Lab Results Laboratory Tests Test 03/19/20 22:15 03/19/20 22:30 White Blood Count 8.3 x10^3/uL (4.0-11.0) Red Blood Count 4.56 x10^6/uL (3.50-5.40) Hemoglobin 12.2 g/dL (12.0-15.5) Hematocrit 38.1 % (36.0-47.0) Mean Corpuscular Volume 84 fL (79-100) Mean Corpuscular Hemoglobin 27 pg (25-35) Mean Corpuscular Hemoglobin Concent 32 g/dL (31-37) Red Cell Distribution Width 17.9 % (11.5-14.5) Platelet Count 206 x10^3/uL (140-400) Neutrophils (%) (Auto) 59 % (31-73) Lymphocytes (%) (Auto) 30 % (24-48) Monocytes (%) (Auto) 8 % (0-9) Eosinophils (%) (Auto) 3 % (0-3) Basophils (%) (Auto) 1 % (0-3) Neutrophils # (Auto) 4.9 x10^3uL (1.8-7.7) Lymphocytes # (Auto) 2.5 x10^3/uL (1.0-4.8) Monocytes # (Auto) 0.6 x10^3/uL (0.0-1.1) Eosinophils # (Auto) 0.3 x10^3/uL (0.0-0.7) Basophils # (Auto) 0.1 x10^3/uL (0.0-0.2) Sodium Level 139 mmol/L (136-145) Potassium Level 3.5 mmol/L (3.5-5.1) Chloride Level 105 mmol/L (98-107) Carbon Dioxide Level 24 mmol/L (21-32) Anion Gap 10 (6-14) Blood Urea Nitrogen 10 mg/dL (7-20) Creatinine 0.8 mg/dL (0.6-1.0) Estimated GFR (Cockcroft-Gault) 81.2 Glucose Level 83 mg/dL (70-99) Calcium Level 9.2 mg/dL (8.5-10.1) Lactic Acid Level 0.7 mmol/L (0.4-2.0) EKG EKG [] Radiology/Procedures Radiology/Procedures [] Heart Score HEART Score for Chest Pain: HEART Score for Chest Pain Response (Comments) Value History Slighlty/Non-Suspicious 0 ECG Normal 0 Age < 45 0 Risk Factors 1 or 2 Risk Factors 1 Total 1 Risk Factors: Risk Factors: DM, Current or recent (<one month) smoker, HTN, HLP, family history of CAD, obesity. Risk Scores: Risk Factors: DM, Current or recent (<one month) smoker, HTN, HLP, family history of CAD, obesity. Course & Med Decision Making Course & Med Decision Making Ambulatory patient in visible in obvious pain but nontoxic seen on immediate ER arrival Airway patent, breathing unremarkable, patient tachycardic and mildly tachypneic at triage Comprehensive history and physical exam obtained, I reviewed most recent ER visit that occurred 10 days prior Given worsening in symptomology despite 4 mm stone which has high likelihood of passing that is not resolved with pain medication, Flomax, and antibiotics, I called [facility] urology, Dr. Campbell, and case was discussed Work-up performed this ER visit grossly unremarkable, patient afebrile, no white count, little indication for repeat imaging. Pain adequately controlled with IV Toradol and IV fentanyl use this admission. No indication for further work- up or admission/transfer Care of patient was coordinated again with [facility] urology, they advised given patient was clinically well-appearing and afebrile to continue current medical management and that they would follow-up with patient first thing tomorrow morning for outpatient follow-up for consideration of stent I discussed this potential plan of care with patient who is amenable. Strict return precautions were discussed with good understanding by patient, all questions and concerns addressed prior to ER departure in stable condition with close outpatient [facility] follow-up Mai Disclaimer Dragon Disclaimer This electronic medical record was generated, in whole or in part, using a voice recognition dictation system. Departure Departure: Impression: Primary Impression: Renal calculus, left Disposition: 01 DC HOME SELF CARE/HOMELESS Condition: STABLE Referrals: PCP,UNKNOWN (PCP) Patient Instructions: Kidney Stones Additional Instructions: As discussed prior to ER departure, please call your PCP tomorrow to schedule outpatient follow-up in upcoming 7 to 14 days Most importantly, please contact [facility] urology department to schedule same-day appointment for evaluation tomorrow. Their information is seen below: Contact [facility] [address] [place] [address] Scripts Tamsulosin Hcl (FLOMAX) 0.4 Mg Cap.er.24h 0.4 MG PO DAILY for KIDNEY STONE for 14 Days, #14 CAP.SR Prov: KENYON RUBIN DO 03/19/20 Hydrocodone Bit/Acetaminophen (NORCO 5-325 TABLET) 1 Each Tablet 1-2 TAB PO Q4-6HRS for SEVERE PAIN, #14 TAB Prov: KENYON RUBIN DO 03/19/20 Cephalexin (KEFLEX) 500 Mg Capsule 500 MG PO TID for KIDNEY STONE for 7 Days, #21 TAB Prov: KENYON RUBIN DO 03/19/20 KENYON RUBIN DO Mar 19, 2020 21:21
[2020-03-19] MEDS ORDERED: KETOROLAC 15 MG/ML VIAL. IVP ONE (21:45)
[2020-03-19] MEDS ORDERED: KETOROLAC 30 MG/ML VIAL. IM ONE (21:45)
[2020-03-19] MEDS ORDERED: IV NORMAL SALINE 1,000ML 1,000 ML IV ONE (21:45)
[2020-03-19 22:35] LABS: BASO # 0.1 x10^3/uL (0.0-0.2); BASO % 1 % (0-3); EOS # 0.3 x10^3/uL (0.0-0.7); EOS % 3 % (0-3); HEMATOCRIT 38.1 % (36.0-47.0); HEMOGLOBIN 12.2 g/dL (12.0-15.5); LYMPH # 2.5 x10^3/uL (1.0-4.8); LYMPH % 30 % (24-48); MEAN CORPUSCULAR HEMOGLOBIN 27 pg (25-35); MEAN CORPUSCULAR HGB CONC 32 g/dL (31-37); MEAN CORPUSCULAR VOLUME 84 fL (79-100); MONO # 0.6 x10^3/uL (0.0-1.1); MONO % 8 % (0-9); NEUT # 4.9 x10^3uL (1.8-7.7); NEUT % 59 % (31-73); PLATELET COUNT 206 x10^3/uL (140-400); RED BLOOD COUNT 4.56 x10^6/uL (3.50-5.40); RED CELL DISTRIBUTION WIDTH 17.9 % (11.5-14.5); WHITE BLOOD COUNT 8.3 x10^3/uL (4.0-11.0)
[2020-03-19 22:50] LABS: CALCIUM 9.2 mg/dL (8.5-10.1); CREATININE 0.8 mg/dL (0.6-1.0); GFR 81.2; POTASSIUM 3.5 mmol/L (3.5-5.1)
[2020-03-19] MEDS ORDERED: HYDR-3165 PO (23:40)
[2020-03-19] MEDS ORDERED: TAMS0.4C97 PO (23:40)
[2020-03-19] MEDS ORDERED: CEPH-264 PO (23:40)
[2020-03-20 00:05] VITALS: BP 136/100
== END 2020-03-20 00:05 | disposition home or self-care (01) ==
LOC: ER 21:02
DX: N20.0 Calculus of kidney (principal); F17.210 Nicotine dependence, cigarettes, uncomplicated; Z87.442 Personal history of urinary calculi; Z90.49 Acquired absence of other specified parts of digestive tract; Z98.890 Other specified postprocedural states; Z88.6 Allergy status to analgesic agent
CPT/HCPCS: 36415; 80048; 83605; 85025; 87040; 96361; 96374; 96375; 99284; J1885; J3010; J7030

== ENCOUNTER 2020-03-20 04:59 | Emergency (ER) | payer OTHER ==
[~2020-03-20] VITALS: Ht 149.9 cm; Wt 98.0 kg
--- NOTE | 2020-03-20 05:23 | PHYS DOC ---
Past History Past Medical History: Kidney Stones Additional Past Medical Histor: mrsa Past Surgical History: Cholecystectomy, Additional Past Surgical Histo: tubal ligation Smoking: Cigarettes Alcohol Use: None Drug Use: None Adult General HPI HPI Patient is a 35-year-old female who presents with left flank pain. Patient was seen earlier during my shift less than 12 hours ago for same presentation stemming from previously diagnosed kidney stone approximately 10 days ago. Patient cites exact same complaints without change in history or physical examination. Patient reported temporary relief with previously administered IV Toradol and fentanyl but this wore off while at home. Continuous severe pain from left flank to groin area and inability to sleep prompted her to represent to our facility for repeat evaluation and pain control. She remains afebrile at this time, no other changes in symptomology versus last examination here Review of Systems Review of Systems Fourteen body systems of review of systems have been reviewed. See HPI for pertinent positives and negative responses, other lawson all other systems are negative, non-pertinent or non-contributory Allergies Allergies Allergies Coded Allergies Type Severity Reaction Last Updated Verified NKMA Allergy Unknown 08/16/19 Yes NSAIDS (Non-Steroidal Anti-Inflamma Adverse Reaction Intermediate Nausea and Vomiting 03/07/20 Yes Physical Exam Physical Exam Constitutional: Well developed, well nourished, moderate distress from pain, non-toxic appearance. HENT: Normocephalic, atraumatic, bilateral external ears normal, oropharynx moist, no oral exudates, nose normal. Eyes: PERRLA, EOMI, conjunctiva normal, no discharge. Neck: Normal range of motion, no tenderness, supple, no stridor. Cardiovascular: Heart rate regular, sinus rhythm, no murmurs rubs or gallops Lungs & Thorax: Bilateral breath sounds clear to auscultation Abdomen: Bowel sounds normal, protuberant, soft, midline and left suprapubic tenderness, no masses, no pulsatile masses. Nonsurgical abdomen, no peritoneal signs Skin: Warm, dry, no erythema, no rash. Back: No tenderness, left CVA tenderness Extremities: No tenderness, no cyanosis, no clubbing, ROM intact, no edema. Neurologic: Alert and oriented X 3, grossly normal motor & sensory function, no focal deficits noted. EKG EKG [] Heart Score HEART Score for Chest Pain: HEART Score for Chest Pain Response (Comments) Value History Slighlty/Non-Suspicious 0 ECG Normal 0 Age < 45 0 Risk Factors 1 or 2 Risk Factors 1 Total 1 Risk Factors: Risk Factors: DM, Current or recent (<one month) smoker, HTN, HLP, family history of CAD, obesity. Risk Scores: Risk Factors: DM, Current or recent (<one month) smoker, HTN, HLP, family history of CAD, obesity. Course & Med Decision Making Course & Med Decision Making Ambulatory nontoxic patient presents again for evaluation for ongoing left flank pain ABCs grossly nonconcerning No change in history or physical exam findings since last obtained approximately 12 hours ago [facility] urology, Dr. Campbell who is previously contacted regarding this case was called again and case was discussed. There are no open beds at [facility], options are to medically manage in ER and/or admit for continued pain control versus discharge home with outpatient follow-up this PM Patient administered 0.4 mg Flomax and x1 [place] 10. This provided significant pain control. I discussed potential of discharge home where patient could collect previously prescribed antibiotics which included Flomax, antibiotics, and [place] 5 At this time in care, my shift is ending. Comprehensive signout given to off going physician. I discussed likely clinical course of discharge home with close outpatient follow-up. I instructed ongoing physician to contact [facility] transfer center to notify them if patient was admitted versus discharged home. I reiterated that patient will need to be n.p.o. starting at 8 AM Dragon Disclaimer Dragon Disclaimer This electronic medical record was generated, in whole or in part, using a voice recognition dictation system. Departure Departure: Impression: Primary Impression: Left renal stone Disposition: 01 DC HOME SELF CARE/HOMELESS Condition: STABLE Referrals: PCP,UNKNOWN (PCP) KENYON RUBIN DO Mar 20, 2020 05:23
[2020-03-20] MEDS ORDERED: TAMSULOSIN 0.4 MG CAP.ER.24H. PO ONE (05:45)
[2020-03-20] MEDS ORDERED: HYDROcodone/APAP 10/325 1 TAB TABLET PO ONE (05:45)
[2020-03-20 07:25] VITALS: BP 133/77
== END 2020-03-20 07:35 | disposition home or self-care (01) ==
LOC: ER 04:59
DX: N20.0 Calculus of kidney (principal); F17.210 Nicotine dependence, cigarettes, uncomplicated; Z90.49 Acquired absence of other specified parts of digestive tract; Z98.890 Other specified postprocedural states; Z98.51 Tubal ligation status; Z88.6 Allergy status to analgesic agent
CPT/HCPCS: 99283

== ENCOUNTER 2020-03-22 09:08 | Emergency (ER) | payer OTHER ==
[~2020-03-22] VITALS: Ht 149.9 cm; Wt 99.0 kg
[2020-03-22] MEDS ORDERED: IV NORMAL SALINE 1,000ML 1,000 ML IV SCH (09:31)
[2020-03-22] MEDS ORDERED: ONDANSETRON PF 4 MG/2 ML VIAL. IVP ONE (09:45)
[2020-03-22 10:05] LABS: BASO % 1 % (0-3); EOS # 0.3 x10^3/uL (0.0-0.7); EOS % 3 % (0-3); HEMATOCRIT 36.1 % (36.0-47.0); HEMOGLOBIN 11.3 g/dL (12.0-15.5); LYMPH # 1.7 x10^3/uL (1.0-4.8); LYMPH % 18 % (24-48); MEAN CORPUSCULAR HEMOGLOBIN 27 pg (25-35); MEAN CORPUSCULAR HGB CONC 31 g/dL (31-37); MEAN CORPUSCULAR VOLUME 85 fL (79-100); MONO # 0.9 x10^3/uL (0.0-1.1); MONO % 9 % (0-9); NEUT # 6.7 x10^3uL (1.8-7.7); NEUT % 70 % (31-73); PLATELET COUNT 183 x10^3/uL (140-400); RED BLOOD COUNT 4.24 x10^6/uL (3.50-5.40); RED CELL DISTRIBUTION WIDTH 18.6 % (11.5-14.5); WHITE BLOOD COUNT 9.7 x10^3/uL (4.0-11.0)
[2020-03-22 10:15] LABS: CALCIUM 9.1 mg/dL (8.5-10.1); CREATININE 1.1 mg/dL (0.6-1.0); GFR 56.2; POTASSIUM 3.6 mmol/L (3.5-5.1)
[2020-03-22 10:28] LABS: ALBUMIN 3.2 g/dL (3.4-5.0); ALBUMIN/GLOBULIN RATIO 0.9 (1.0-1.7); TOTAL BILIRUBIN 0.4 mg/dL (0.2-1.0); TOTAL PROTEIN 6.7 g/dL (6.4-8.2)
[2020-03-22 10:30] LABS: PREG TEST PT QUAL NEGATIVE (NEG)
--- NOTE | 2020-03-22 10:41 | RAD ---
Exam: CT abdomen/pelvis without intravenous contrast Indication: Left flank pain for 2 weeks Comparison: CT abdomen and pelvis 03/02/2020 Technique: Helical CT imaging performed of the abdomen and pelvis without the use of intravenous contrast. Sagittal and coronal reformats were obtained. One or more of the following individualized dose reduction techniques were utilized for this examination: 1. Automated exposure control 2. Adjustment of the mA and/or kV according to patient size 3. Use of iterative reconstruction technique. Findings: Inherently limited evaluation without intravenous contrast. Lower chest: Normal. Liver: Normal. Gallbladder/Biliary Tree: Post cholecystectomy. Bile ducts are normal. Pancreas: Normal. Spleen: Normal. Adrenal Glands: Normal. Kidneys/Ureters/Bladder: There is increased, moderate left hydronephrosis and new mild left hydroureter. Increased mild perinephric and periureteral fat stranding. There is no radiopaque calculus visualized. The right kidney and ureter are normal. The bladder is decompressed. Mild fat stranding around the bladder. Reproductive Organs: Uterus is normal in appearance. Increased size of ovaries compared to prior exam likely physiologic related to follicular cysts. Unchanged approximately 2 cm cystic lesion in the vagina or urethra (image 153, series 2). Stomach, small bowel, and colon: Stomach, small bowel, colon, and appendix are normal. Vasculature: Abdominal aorta is normal in caliber. Lymph Nodes: No lymphadenopathy. Small lymph nodes adjacent to the distal left ureter and bladder are likely reactive. Peritoneum and retroperitoneum: No free fluid or free air. Bones: No acute osseous abnormality. Impression: Increased, moderate left hydronephrosis and new mild left hydroureter. This is likely due to recently passed stone as the calculus seen on prior exam is no longer visualized. Electronically signed by: Yvonne Meza MD (03/22/2020 10:38 AM) [id number]
[2020-03-22 10:45] LABS: BILIRUBIN,URINE NEG (NEG); CLARITY,URINE HAZY; COLOR,URINE YELLOW; GLUCOSE,URINE NEG (NEG)
[2020-03-22 10:46] LABS: BACTERIA,URINE FEW /HPF (0-FEW); NITRITE,URINE NEG (NEG); RBC,URINE >40 /HPF (0-2); SQUAMOUS EPITHELIAL CELL,UR MOD /LPF; UROBILINOGEN,URINE 0.2 mg/dL (0.2 mg/dL); WBC,URINE OCC /HPF (0-4)
--- NOTE | 2020-03-22 10:52 | PHYS DOC ---
Past History Past Medical History: No Pertinent History Additional Past Medical Histor: mrsa Past Surgical History: Cholecystectomy, , Tubal ligation Additional Past Surgical Histo: tubal ligation Smoking: Cigarettes Alcohol Use: None Drug Use: None General Adult EDM: Chief Complaint: ABDOMINAL PAIN HPI: HPI: Patient is a 35 year old female who presents for evaluation of moderate to severe left flank pain. She has had progressing pain for 2 nights but particular worse last night. Patient is status post ureter stent placement at [facility]. She states the string got caught on her underwear and she pulled the stent out accidentally last night. Since then she has been in severe discomfort. She is having difficulty urinating as well. She states she tends to urinate and only small amounts. Patient Nuys any fevers and chills. There is some blood noted in her urine but no other obvious reported symptoms. She does have repeated episodes of nausea and vomiting. Patient is tearful on arrival Review of Systems: Review of Systems: Constitutional: Denies fever or chills Eyes: Denies change in visual acuity HENT: Denies nasal congestion or sore throat Respiratory: Denies cough or shortness of breath Cardiovascular: Denies chest pain or edema GI: left flank/abdominal pain with nausea and vomiting, no bloody stools or diarrhea : has dysuria Musculoskeletal: left flank pain pain no joint pain Integument: Denies rash Neurologic: Denies headache, focal weakness or sensory changes Endocrine: Denies polyuria or polydipsia Lymphatic: Denies swollen glands Psychiatric: Denies depression or anxiety Current Medications: Current Meds: Current Medications Medications (Trade) Dose Ordered Sig/[facility] Start Time Stop Time Status Last Admin Dose Admin Fentanyl Citrate (Fentanyl 2ml Vial) 50 mcg PRN Q15MIN PRN 03/22/20 09:45 03/23/20 09:44 03/22/20 10:38 50 MCG Ondansetron HCl (Zofran) 4 mg 1X ONCE 03/22/20 09:45 03/22/20 09:46 DC 03/22/20 09:47 4 MG Sodium Chloride 1,000 ml @ 1,000 mls/hr Q1H 03/22/20 09:31 03/22/20 10:30 DC 03/22/20 09:47 1,000 MLS/HR Allergies: Allergies: Allergies Coded Allergies Type Severity Reaction Last Updated Verified NKMA Allergy Unknown 08/16/19 Yes NSAIDS (Non-Steroidal Anti-Inflamma Adverse Reaction Intermediate Nausea and Vomiting 03/07/20 Yes Physical Exam: PE: Constitutional: Well developed, well nourished, moderate acute distress. [] HENT: Normocephalic, atraumatic, bilateral external ears normal, oropharynx moist, no oral exudates, nose normal. [] Eyes: PERRL, EOMI, conjunctiva normal, no discharge. [] Neck: Normal range of motion, no tenderness, supple. [] Cardiovascular:Heart rate regular rhythm, no murmur [] Lungs & Thorax: Bilateral breath sounds clear to auscultation [] Abdomen: Bowel sounds normal, soft, no tenderness, no masses, moderate tender left flank. [] Skin: Warm, dry, no erythema, no rash. [] Back: No tenderness. [] Extremities: No tenderness, no cyanosis, no clubbing, no edema. [] Neurologic: Alert and oriented X 3, normal motor function, normal sensory function, no focal deficits noted. [] Psychologic: Affect normal, judgement normal, mood abnormal. [] Current Patient Data: Labs: Laboratory Tests Test 03/22/20 09:43 03/22/20 09:48 White Blood Count 9.7 x10^3/uL (4.0-11.0) Red Blood Count 4.24 x10^6/uL (3.50-5.40) Hemoglobin 11.3 g/dL (12.0-15.5) L Hematocrit 36.1 % (36.0-47.0) Mean Corpuscular Volume 85 fL (79-100) Mean Corpuscular Hemoglobin 27 pg (25-35) Mean Corpuscular Hemoglobin Concent 31 g/dL (31-37) Red Cell Distribution Width 18.6 % (11.5-14.5) H Platelet Count 183 x10^3/uL (140-400) Neutrophils (%) (Auto) 70 % (31-73) Lymphocytes (%) (Auto) 18 % (24-48) L Monocytes (%) (Auto) 9 % (0-9) Eosinophils (%) (Auto) 3 % (0-3) Basophils (%) (Auto) 1 % (0-3) Neutrophils # (Auto) 6.7 x10^3uL (1.8-7.7) Lymphocytes # (Auto) 1.7 x10^3/uL (1.0-4.8) Monocytes # (Auto) 0.9 x10^3/uL (0.0-1.1) Eosinophils # (Auto) 0.3 x10^3/uL (0.0-0.7) Basophils # (Auto) 0.0 x10^3/uL (0.0-0.2) Sodium Level 141 mmol/L (136-145) Potassium Level 3.6 mmol/L (3.5-5.1) Chloride Level 105 mmol/L (98-107) Carbon Dioxide Level 26 mmol/L (21-32) Anion Gap 10 (6-14) Blood Urea Nitrogen 11 mg/dL (7-20) Creatinine 1.1 mg/dL (0.6-1.0) H Estimated GFR (Cockcroft-Gault) 56.2 BUN/Creatinine Ratio 10 (6-20) Glucose Level 79 mg/dL (70-99) Calcium Level 9.1 mg/dL (8.5-10.1) Total Bilirubin 0.4 mg/dL (0.2-1.0) Aspartate Amino Transferase (AST) 14 U/L (15-37) L Alanine Aminotransferase (ALT) 22 U/L (14-59) Alkaline Phosphatase 67 U/L (46-116) Total Protein 6.7 g/dL (6.4-8.2) Albumin 3.2 g/dL (3.4-5.0) L Albumin/Globulin Ratio 0.9 (1.0-1.7) L Lipase 51 U/L (73-393) L Serum Test, Qualitative Negative (NEG) Urine Collection Type Unknown Urine Color Yellow Urine Clarity Hazy Urine pH 6.0 Urine Specific [place] >=1.030 Urine Protein 100 mg/dl (NEG-TRACE) Urine Glucose (UA) Neg mg/dL (NEG) Urine Ketones (Stick) Neg mg/dL (NEG) Urine Blood Large (NEG) Urine Nitrite Neg (NEG) Urine Bilirubin Neg (NEG) Urine Urobilinogen Dipstick 0.2 mg/dL (0.2 mg/dL) Urine Leukocyte Esterase Neg (NEG) Urine RBC >40 /HPF (0-2) Urine WBC Occ /HPF (0-4) Urine Squamous Epithelial Cells Mod /LPF Urine Bacteria Few /HPF (0-FEW) Vital Signs: Vital Signs Date Time Temp Pulse Resp B/P (MAP) Pulse Ox O2 Delivery O2 Flow Rate FiO2 03/22/20 10:38 Room Air 03/22/20 09:23 97.3 104 18 159/104 (122) 98 EKG: EKG: [] Radiology/Procedures: Radiology/Procedures: [address] [address] IMAGING REPORT Signed PATIENT: THERESA BROCK ACCOUNT: [id number] : 1985 LOCATION: ER AGE: 35 SEX: F EXAM STATUS: PRE ER ORD. PHYSICIAN: DISHA VICKERS DO REASON: left flank pain times 2 weeks PROCEDURE: CT ABDOMEN PELVIS WO CONTRAST Exam: CT abdomen/pelvis without intravenous contrast Indication: Left flank pain for 2 weeks Comparison: CT abdomen and pelvis 03/02/2020 Technique: Helical CT imaging performed of the abdomen and pelvis without the use of intravenous contrast. Sagittal and coronal reformats were obtained. One or more of the following individualized dose reduction techniques were utilized for this examination: 1. Automated exposure control 2. Adjustment of the mA and/or kV according to patient size 3. Use of iterative reconstruction technique. Findings: Inherently limited evaluation without intravenous contrast. Lower chest: Normal. Liver: Normal. Gallbladder/Biliary Tree: Post cholecystectomy. Bile ducts are normal. Pancreas: Normal. Spleen: Normal. Adrenal Glands: Normal. Kidneys/Ureters/Bladder: There is increased, moderate left hydronephrosis and new mild left hydroureter. Increased mild perinephric and periureteral fat stranding. There is no radiopaque calculus visualized. The right kidney and ureter are normal. The bladder is decompressed. Mild fat stranding around the bladder. Reproductive Organs: Uterus is normal in appearance. Increased size of ovaries compared to prior exam likely physiologic related to follicular cysts. Unchanged approximately 2 cm cystic lesion in the vagina or urethra (image 153, series 2). Stomach, small bowel, and colon: Stomach, small bowel, colon, and appendix are normal. Vasculature: Abdominal aorta is normal in caliber. Lymph Nodes: No lymphadenopathy. Small lymph nodes adjacent to the distal left ureter and bladder are likely reactive. Peritoneum and retroperitoneum: No free fluid or free air. Bones: No acute osseous abnormality. Impression: Increased, moderate left hydronephrosis and new mild left hydroureter. This is likely due to recently passed stone as the calculus seen on prior exam is no longer visualized. Electronically signed by: Yvonne Meza MD (03/22/2020 10:38 AM) [id number] DICTATED AND SIGNED BY: YVONNE MEZA MD DATE: 03/22/20 1038 CC: PCP,UNKNOWN; DISHA VICKERS DO ~ [] Heart Score: Risk Factors: Risk Factors: DM, Current or recent (<one month) smoker, HTN, HLP, family history of CAD, obesity. Risk Scores: Score 0 - 3: 2.5% MACE over next 6 weeks - Discharge Home Score 4 - 6: 20.3% MACE over next 6 weeks - Admit for Clinical Observation Score 7 - 10: 72.7% MACE over next 6 weeks - Early Invasive Strategies Course & Med Decision Making: Course & Med Decision Making Pertinent Labs and Imaging studies reviewed. (See chart for details) [] Dragon Disclaimer: Dragon Disclaimer: This electronic medical record was generated, in whole or in part, using a voice recognition dictation system. 1054 transfer line called to discuss case. Dr. Campbell is her urologist. They are working to contact that physician for disposition decision at this time. Patient has recurrent moderate left hydronephrosis with intractable pain 1126 Dr. Burleson is the accepting urologist to [facility]. Patient may have a problem where she would need somebody to drive her to that facility. 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 Patient will be signing out AGAINST MEDICAL ADVICE regarding ambulance transfer Departure Departure: Impression: Primary Impression: Left flank pain Additional Impression: Hydronephrosis, left Disposition: 02 DC/TRF OTHER SHORT TERM HOS (Dr. Burleson is the accepting Urologist to [facility]) Condition: STABLE Referrals: PCP,UNKNOWN (PCP) DISHA VICKERS DO Mar 22, 2020 10:52
[2020-03-22 11:40] VITALS: BP 122/93
== END 2020-03-22 11:50 | disposition left against medical advice (07) ==
LOC: ER 09:08
DX: N13.2 Hydronephrosis with renal and ureteral calculous obstruction (principal); R10.9 Unspecified abdominal pain; R50.9 Fever, unspecified; R11.2 Nausea with vomiting, unspecified; F17.210 Nicotine dependence, cigarettes, uncomplicated; Z90.49 Acquired absence of other specified parts of digestive tract; Z98.51 Tubal ligation status; Z98.890 Other specified postprocedural states; Z86.14 Personal history of Methicillin resistant Staphylococcus aureus infection
CPT/HCPCS: 36415; 74176; 80053; 81001; 83690; 84703; 85025; 96361; 96374; 96375; 96376; 99285; J2405; J3010; J7030

== ENCOUNTER → 2020-08-28 | Outpatient (CLI) | payer OTHER ==
--- NOTE | 2020-08-28 13:58 | RAD ---
Right upper extremity duplex arterial ultrasound INDICATION: Right upper extremity weakness and swelling after injury to the brachial plexus COMPARISON: None. TECHNIQUE: Grayscale, color and spectral Doppler imaging of the arteries of the right upper extremity were obtained from the subclavian artery through the axillary, brachial, radial and ulnar arteries. FINDINGS: The arterial waveforms in the right upper extremity are triphasic throughout and show no evidence of arterial occlusion or hemodynamically significant stenosis. No pseudoaneurysm is identified. There is no evidence of arterial extravasation. IMPRESSION: No evidence of arterial injury to the right upper extremity. Electronically signed by: Priti Vazquez MD (08/28/2020 1:56 PM) [id number]
== END ==
LOC: US 12:34
PROVIDERS: ATTEND Specialist
DX: S14.3XXA Injury of brachial plexus, initial encounter (principal); R53.1 Weakness; M79.89 Other specified soft tissue disorders; X58.XXXA Exposure to other specified factors, initial encounter; Y93.89 Activity, other specified; Y92.89 Other specified places as the place of occurrence of the external cause; Y99.8 Other external cause status
CPT/HCPCS: 93931

== ENCOUNTER → 2020-09-10 | Outpatient (CLI) | payer OTHER ==
[2020-09-10 21:16] LABS: TOTAL SERUM CREATININE 0.93 mg/dL (0.57-1.00); TOTAL URINE CREATININE 47.4 mg/dL (Not Estab.)
== END ==
LOC: LAB 08:21
PROVIDERS: ATTEND Nurse Practitioner Adult Health
DX: N17.9 Acute kidney failure, unspecified (principal); R79.89 Other specified abnormal findings of blood chemistry
CPT/HCPCS: 36415; 82575

== ENCOUNTER → 2020-09-21 | Outpatient (CLI) | payer OTHER ==
[2020-09-21 16:19] LABS: BASO # 0.1 x10^3/uL (0.0-0.2); BASO % 1 % (0-3); EOS # 0.3 x10^3/uL (0.0-0.7); EOS % 5 % (0-3); HEMATOCRIT 37.2 % (36.0-47.0); HEMOGLOBIN 12.3 g/dL (12.0-15.5); LYMPH # 2.2 x10^3/uL (1.0-4.8); LYMPH % 34 % (24-48); MEAN CORPUSCULAR HEMOGLOBIN 33 pg (25-35); MEAN CORPUSCULAR HGB CONC 33 g/dL (31-37); MEAN CORPUSCULAR VOLUME 101 fL (79-100); MONO # 0.6 x10^3/uL (0.0-1.1); MONO % 9 % (0-9); NEUT # 3.2 x10^3uL (1.8-7.7); NEUT % 50 % (31-73); PLATELET COUNT 216 x10^3/uL (140-400); RED BLOOD COUNT 3.68 x10^6/uL (3.50-5.40); RED CELL DISTRIBUTION WIDTH 16.3 % (11.5-14.5); WHITE BLOOD COUNT 6.5 x10^3/uL (4.0-11.0)
[2020-09-21 16:37] LABS: ALBUMIN 3.8 g/dL (3.4-5.0); CALCIUM 9.4 mg/dL (8.5-10.1); CREATININE 0.8 mg/dL (0.6-1.0); GFR 81.2; POTASSIUM 3.7 mmol/L (3.5-5.1)
== END ==
LOC: LAB 15:43
PROVIDERS: ATTEND Nurse Practitioner Adult Health
DX: N17.9 Acute kidney failure, unspecified (principal)
CPT/HCPCS: 36415; 80069; 82728; 83540; 83550; 85025